=== PATIENT | male | born 1935 | race Caucasian/White ===

== ENCOUNTER 2017-05-11 08:45 | Day surgery (SDC) | payer MEDICARE, BC ==
[2017-05-09 15:04] VITALS: BMI 20.1
[~2017-05-11 08:45] MED LIST: LACTATED RINGERS 1,000 ML IV SCH; LIDOCAINE 1% 20 ML VIAL (10MG/ML) FOR IV START INTRADERMA PRN
[2017-05-11 09:00] VITALS: RESP 16; TEMP 98.6
[2017-05-11] MEDS ORDERED: LIDOCAINE 1% INJ 10MG/ML (20 ML MDV) ONE (09:58)
[2017-05-11] MEDS ORDERED: fentaNYL (PF) 50 MCG/ML 2 ML AMP ONE (09:58)
[2017-05-11] MEDS ORDERED: PROPOFOL 10 MG/ML 20 ML VIAL IV ONE (09:58)
[2017-05-11] MEDS ORDERED: GLYCOPYRROLATE 0.2 MG/ML 2 ML VIAL ONE (09:58)
--- NOTE | 2017-05-11 10:54 | P.PCN ---
Date of Procedure: 05/11/17 Procedure(s) Performed: Procedure: 1. Esophagogastroduodenoscopy and biopsy. 2. Colonoscopy and polypectomy. Preoperative diagnosis: Blood in the stools. Postoperative diagnosis: 1. Very small sliding hiatal hernia with no obvious esophagitis or complicated reflux disease. 2. Mild antral gastritis and duodenitis. 3. Diverticulosis of the colon with no evidence of acute diverticulitis or strictures. 4. Small polyps snared in the cecum and around the hepatic flexure but no large polyps or cancer. Preparation: HalfLytely prep. Sedation: Was provided by anesthesia. Brief clinical history: The patient is an 81-year-old male who is scheduled for this evaluation because of finding of blood on his stools. The patient has history of polyps and prior colonoscopies. He has no dysphagia or, odynophagia or other alarm ymptoms or anemia. Procedure: With the patient on his left lateral decubitus position and after informed consent and adequate sedation, I passed the Olympus-GIF 160 video upper endoscope through the cricopharyngeus down the esophagus. GE junction was around 40-41 cm from the incisors and there was a very small sliding hiatal hernia with no obvious esophagitis or complicated reflux disease. The endoscope was then passed into the stomach which was insufflated with air and inspected in detail including the retroflex view in the cardia. There was some mottling and erythema in the antrum but no ulcers or erosions. Pyloric channel did not show any ulcers. Duodenal bulb, post bulbar area and descending duodenum showed minimal erythema but no ulcers, erosions or bleeding. I obtained biopsies from the duodenum, antrum and esophagus then the endoscope was withdrawn and I proceeded with the colonoscopy. Perianal area did not show any fissures or fistulas. There were no masses felt on digital rectal examination. The Olympus CFQ 160L video colonoscope was then inserted in the rectum in the usual fashion and advanced to the cecum. There were multiple diverticular orifices seen scattered mostly on the left side with some around the hepatic flexure and on the right side but no evidence of acute diverticulitis or strictures. There were 2 polyps in the cecum and one around the hepatic flexure that were snared and retrieved by suction but there were no large polyps or cancer. I retroflexed the endoscope in the rectum before the endoscope was withdrawn. The patient tolerated the procedure well. Plan: The patient was reassured. Discussed dietary measures. Further plans can be made a stone his course and biopsy results. I did not schedule small bowel studies at this time and that can be kept as a contingency based on his course.
[2017-05-11 11:00] VITALS: BP 133/75; PULSE 74
== END 2017-05-11 11:51 | disposition home or self-care (01) ==
LOC: ORWHC2ENDO 08:45
DX: D12.0 Benign neoplasm of cecum (principal); D12.3 Benign neoplasm of transverse colon; K29.70 Gastritis, unspecified, without bleeding; K44.9 Diaphragmatic hernia without obstruction or gangrene; K29.80 Duodenitis without bleeding; K57.30 Diverticulosis of large intestine without perforation or abscess without bleeding; Z86.010 Personal history of colon polyps; J45.909 Unspecified asthma, uncomplicated; Z85.46 Personal history of malignant neoplasm of prostate; K76.9 Liver disease, unspecified; K21.9 Gastro-esophageal reflux disease without esophagitis; F41.9 Anxiety disorder, unspecified; F32.9 Major depressive disorder, single episode, unspecified; Z79.1 Long term (current) use of non-steroidal anti-inflammatories (NSAID); Z79.899 Other long term (current) drug therapy; Z91.09 Other allergy status, other than to drugs and biological substances
CPT/HCPCS: 88305; 88342; 45385; 43239; J2001; J3010; J2704

== ENCOUNTER 2019-06-04 07:05 | Day surgery (SDC) | payer MEDICARE, BC ==
[2019-05-31 14:37] VITALS: BMI 21.7
[~2019-06-04 07:05] MED LIST changes: -LIDOCAINE 1% 20 ML VIAL (10MG/ML) FOR IV START INTRADERMA PRN
[2019-06-04] MEDS: PHENYLEPHRINE 10% OPHTH DROPS 5 ML BTL OP ONE ×3 (07:30→07:48)
[2019-06-04 07:32] VITALS: RESP 16; TEMP 98.5
[2019-06-04] MEDS: CYCLOPENTOLATE 1% OPHTH SOLN 2 ML BTL OP ONE ×3 (07:33→07:51)
[2019-06-04] MEDS ORDERED: LIDOCAINE 1% 20 ML VIAL (10MG/ML) FOR IV START INTRADERMA ONE (07:35)
[2019-06-04] MEDS: KETOROLAC 0.5% OPHTH DROPS 5 ML BTL OP ONE ×3 (07:36→07:55)
[2019-06-04] MEDS ORDERED: PROPOFOL 10 MG/ML 20 ML VIAL IV ONE (08:30)
[2019-06-04] MEDS ORDERED: EPINEPHrine (PF) 0.5 ML in BALANCED SALT IRRIG SOLN COMB2 500 ML IRRIGATION ONE (08:47)
[2019-06-04] MEDS ORDERED: HYALURONATE SODIUM INTRAOCULAR 1 EACH SYRINGE (10MG/ML) INTRAOCULA ONE (08:49)
[2019-06-04] MEDS ORDERED: BALANCED SALT IRRIG SOLN COMB2 15 ML IRRIG.SOLN IRRIGATION ONE (08:49)
[2019-06-04 09:32] VITALS: BP 166/79; PULSE 60
--- NOTE | 2019-06-04 09:42 | P.OP ---
Date of Procedure: 06/04/19 Procedure(s) Performed: PREOPERATIVE DIAGNOSIS: Cataract, right eye. POSTOPERATIVE DIAGNOSIS: Cataract, [right] eye. OPERATION: Phacoemulsification of cataract, intraocular lens placement, right eye. DESCRIPTION OF PROCEDURE: The patient was taken to the operating room. Intravenous Propofol was given so as to bring about sedation. The following mixture was given for local anesthesia: 5 mL of 2% lidocaine, 5 mL of 0.75% Marcaine, and 1 mL of Wydase. Approximately 4 mL was injected in the retro bulbar space of the surgical eye. Additional 1 mL was then directed to the temporal area of the surgical eye. This was performed to allow adequate neurological block of the facial muscles. The patient was revived. The patient was prepped and draped in the usual sterile manner for the operative eye. A lid speculum was put into position. The conjunctiva was resected back from the limbus in the 12 o'clock position. Bleeding was controlled with electrocautery. A #69 blade was then used and a half-thickness scleral incision approximately 1-mm posterior to the limbus was made on bare sclera. This was shelved in the clear cornea using a crescent knife. Next a 15-degree blade was used to make a stab incision at the 3 o'clock position at the corneolimbal interface. A keratome blade was then used and the superior wound was extended into the anterior chamber. Viscoelastic was injected into the anterior chamber to maintain its form. A cystotome was used and a continuous anterior cap sulotomy was made. Hydrodissection of the lens cortex using a blunt cannula and BSS was performed. A phaco probe was then introduced and a groove extending from 12 to 6 o'clock in the lens was created. A Ranjit wand was used through the stab incision and used to perform a divide and conquer dismantling of the cataract. An irrigation aspiration probe was utilized and any residual cortex was removed from the eye. Again, viscoelastic was injected into the anterior chamber. An Carlos A posterior chamber lens implant was placed in a delivery cartridge and injected into the anterior chamber. A Sinskey hook was utilized to spin the lens into position within the capsular bag. The irrigation and aspiration probe was again introduced and any residual viscoelastic was removed from the eye. BSS was injected via blunt canula into the limbal stab incision and the anterior chamber was re-inflated. The conjunctiva was reapproximated using electrocautery. One drop of 0.25% Timoptic was placed over the corneal along with an antibiotic ophthalmic ointment. Two sterile patches and a Burnett eye shield were taped into position. The patient was transported to the recovery room in stable condition. Pathology: none sent Condition: stable Disposition: same day
[2019-06-04] MEDS ORDERED: BUPIVACAINE (PF) 0.75% 5 ML, HYALURONIDASE, HUMAN RECOMB 150 UNIT, LIDOCAINE 2% (PF) 10... MISCELLANE ONE ×3 (23:00)
[2019-06-04] MEDS ORDERED: TIMOLOL 0.5% OPHTH DROPS 5 ML BTL OP ONE (23:00)
[2019-06-04] MEDS ORDERED: TOBRA-DEXAMET 0.3-0.1% OPHTH OINT 3.5 GM TUBE OPHTHALMIC ONE (23:00)
== END 2019-06-04 09:53 | disposition home or self-care (01) ==
LOC: OR 07:05
PROVIDERS: ATTEND Ophthalmology
DX: H25.13 Age-related nuclear cataract, bilateral (principal); I10 Essential (primary) hypertension; Z86.19 Personal history of other infectious and parasitic diseases; F32.9 Major depressive disorder, single episode, unspecified; Z90.89 Acquired absence of other organs; Z98.52 Vasectomy status; Z90.79 Acquired absence of other genital organ(s); H35.373 Puckering of macula, bilateral; Z88.6 Allergy status to analgesic agent; Z88.8 Allergy status to other drugs, medicaments and biological substances; E78.5 Hyperlipidemia, unspecified; J45.909 Unspecified asthma, uncomplicated; F41.9 Anxiety disorder, unspecified; K21.9 Gastro-esophageal reflux disease without esophagitis; Z79.899 Other long term (current) drug therapy
CPT/HCPCS: 66984; V2632; J3470; J2001; J0171; J2704

== ENCOUNTER → 2020-12-10 | Outpatient (CLI) | payer MEDICARE ==
--- NOTE | 2020-12-10 13:30 | CT ---
EXAMINATION TYPE: CT brain wo con DATE OF EXAM: 12/10/2020 COMPARISON: None HISTORY: loss of balance CT DLP: [address] of the brain was performed. The ventricles, basal cisterns and sulci overlying the cerebral convexities demonstrate mild enlargem ent. There is no evidence for intracranial hemorrhage or sulcal effacement. There is decreased attenuation about the periventricular white matter and deep white matter of both c erebral hemispheres, compatible with chronic small vessel ischemia. Differential diagnosis does inclu de demyelination. No mass effects are seen.No midline shift. Osseous calvarium is intact. Mucosal thickening left maxillary sinus. If symptoms persist consider MRI. IMPRESSION: 1. Age related atrophic and chronic small vessel ischemic change without acute intracranial process s een at this time.
== END | disposition home or self-care (01) ==
LOC: RADECHMAIN 12:00
PROVIDERS: ATTEND Family Medicine
DX: G31.89 Other specified degenerative diseases of nervous system (principal); R11.0 Nausea; R55 Syncope and collapse; R42 Dizziness and giddiness
CPT/HCPCS: 70450; 93225; 93226

== ENCOUNTER → 2021-01-01 | Outpatient (CLI) | payer MEDICARE, BC ==
--- NOTE | 2021-01-01 11:27 | US ---
EXAMINATION TYPE: US carotid duplex BILAT DATE OF EXAM: 01/01/2021 COMPARISON: NONE CLINICAL HISTORY: R55 syncope, R11.0 nausea, R12 dizziness. dizziness, syncope, no h/o stroke EXAM MEASUREMENTS: RIGHT: Peak Systolic Velocity (PSV) cm/sec ----- Right CCA: 76.2 ----- Right ICA: 86.1 ----- Right ECA: 72.8 ICA/CCA ratio: 1.1 RIGHT: End Diastole cm/sec ----- Right CCA: 14.2 ----- Right ICA: 20.6 ----- Right ECA: 16.6 LEFT: Peak Systolic Velocity (PSV) cm/sec ----- Left CCA: 83.0 ----- Left ICA: 73.1 ----- Left ECA: 96.0 ICA/CCA ratio: 0.9 LEFT: End Diastole cm/sec ----- Left CCA: 15.4 ----- Left ICA: 19.7 ----- Left ECA: 11.3 VERTEBRALS (direction of flow): Right Vertebral: Antegrade Left Vertebral: Antegrade Rhythm: Normal Heterogeneous plaque at bilateral bulbs, no significant stenosis IMPRESSION: 1. Heterogeneous plaque bilaterally with no significant hemodynamic stenosis. Criteria for Assigning % of Stenosis / Diameter reduction (Estimation based on the indirect measurements of the internal carotid artery velocities (ICA PSV). 1. Normal (no stenosis)=ICA PSV < 125 cm/s: ratio < 2.0: ICA EDV<40 cm/s. 2. Less than 50% stenosis=ICA PSV < 125 cm/s: ratio < 2.0: ICA EDV<40 cm/s. 3. 50 to 69% stenosis=ICA PSV of 125 to 230 cm/s: ration 2.0 ? 4.0: ICA EDV 40-100 cm/s. 4. Greater than 70% stenosis to near occlusion= ICA PSV > 230 cm/s: ratio > 4.0: ICA EDV > 100 cm/s. 5. Near occlusion= ICA PSV velocities may be low or undetectable: variable ratio and ICA EDV. 6. Total occlusion=unable to detect flow.
== END | disposition home or self-care (01) ==
LOC: RADUSWWP 10:54
PROVIDERS: ATTEND Family Medicine
DX: L41.4 Large plaque parapsoriasis (principal); R55 Syncope and collapse; R11.0 Nausea; R42 Dizziness and giddiness
CPT/HCPCS: 93880

== ENCOUNTER → 2021-11-22 | Outpatient (CLI) | payer MEDICARE, BC ==
[2021-11-22 08:37] LABS: African American GFR (CKD) >90 (>60 ml/min/1.73 sqM); Blood Urea Nitrogen 16 mg/dL (9-20); Non-African American GFR(CKD) 82 (>60 ml/min/1.73 sqM)
--- NOTE | 2021-11-22 11:11 | CT ---
EXAMINATION TYPE: CT angio abdomen pelvis CT DLP: 396.9 mGycm, Automated exposure control for dose reduction was used. DATE OF EXAM: 11/22/2021 10:31 AM COMPARISON: None available. CLINICAL INDICATION:Male, 86 years old with history of I77.1; Narrowing of Iliac Arteries TECHNIQUE: Multiple thin slice sub-millimeter images were obtained through the abdomen and pelvis bef ore and after administration of contrast. Patient was given Isovue 370, 100 cc intravenously. 3-D r econstructed images and maximum intensity projection images were obtained of the abdomen and pelvis. FINDINGS: CTA Abdomen and pelvis: The abdominal aorta does not demonstrate aneurysmal dilatation. Severe ather osclerotic plaquing and mural thrombus is identified within the abdominal aorta. The origins of the superior mesenteric artery, renal arteries, and celiac axis are patent. Severe stenosis at the origin of the KIRSTY. KIRSTY appears diminutive but patent. Severe atherosclerotic plaquing with mural thrombus f ormation is identified in the common iliac arteries. There is severe mixed calcified and noncalcifie d plaque throughout the left common iliac artery with at least 90% stenosis. The left internal/supply chain project manager al iliac arteries are patent with regions of mixed calcified and atherosclerotic plaque. There is sev ere mixed calcified and noncalcified plaque involving the right common iliac artery with at least 90% stenosis near its origin. There is decreased attenuation of the left common iliac artery extending i nto the left external and internal, neck arteries and left femoral and superficial femoral arteries w hen compared to the right. The right external and internal iliac arteries are patent. The visualized portions of the superficial femoral and femoral arteries are patent. VISCERA: The liver, spleen, adrenal glands, kidneys, pancreas, and gallbladder are not optimally enha nced due the arterial phase utilized. LIVER: Peripheral right hepatic lobe calcifications. 1.7 cm hypoattenuating lesion without arterial e nhancement in the posterior right hepatic lobe (series 6, image 48) GALLBLADDER AND BILE DUCTS: Cholelithiasis without surrounding inflammatory changes. No biliary ducta l dilatation. PANCREAS: Unremarkable. SPLEEN: Unremarkable. ADRENAL GLANDS: Unremarkable. KIDNEYS AND URETERS: No hydronephrosis or renal calculi. Enhance symmetrically. Left renal cysts. PELVIS BLADDER: Somewhat trabeculated appearance. REPRODUCTIVE: Penile prosthesis identified. Prostate gland is diminutive or surgically absent. ABDOMEN & PELVIS STOMACH AND BOWEL: Stomach and duodenum are unremarkable. Distal colonic diverticulosis without evide nce for acute diverticulitis. Metallic clips demonstrated in the region of the sigmoid colon. No evid ence of bowel obstruction. PERITONEUM: No evidence of pneumoperitoneum or free fluid. MUSCULOSKELETAL: No acute osseous abnormalities. 1 cm sclerotic focus within the posterior left iliac bone. Additional sclerotic foci within the right hemisacrum. Grade 1 anterolisthesis of L4 on L5 wit hout evidence of pars defects. Bilateral L5 pars defects with grade 1 anterolisthesis of L5 on S1. De generative disc disease most pronounced at L4-L5 and L5-S1. LYMPH NODES: No gross evidence for lymphadenopathy. SOFT TISSUE/ABDOMINAL WALL: Unremarkable IMPRESSION 1. Severe atherosclerotic disease involving the abdominal aorta and bilateral common iliac arteries. At least 90% stenosis due to mixed calcified and noncalcified plaque involving the bilateral common iliac arteries with left greater than right. No definitive evidence of vascular occlusion within the visualized vasculature. Decreased attenuation of the left common iliac arteries and its branches comp ared to the right suggests possible decreased perfusion. Diminutive appearance of the KIRSTY. 2. Indeterminate 1.7 cm hepatic lesion. Correlation with prior imaging is recommended to assess for s tability otherwise consider CT or MR liver mass protocol for further evaluation. 3. Cholelithiasis. 4. Colonic diverticulosis without evidence for acute diverticulitis.
== END | disposition home or self-care (01) ==
LOC: RADCTMAIN 07:54
PROVIDERS: ATTEND Surgery
DX: I77.1 Stricture of artery (principal)
CPT/HCPCS: 82565; 84520; 36415; 74174; Q9967